=== PATIENT | female | born 1965 | race Caucasian/White ===

== ENCOUNTER → 2017-11-12 | Outpatient (CLI) | payer OTHER | LOC: M.RAD 12:46 | DX: M25.521 Pain in right elbow (principal) ==

== ENCOUNTER → 2018-03-02 | Outpatient (CLI) | payer OTHER | LOC: M.RAD 09:52 | DX: Z12.31 Encounter for screening mammogram for malignant neoplasm of breast (principal) ==

== ENCOUNTER → 2018-03-04 | Outpatient (CLI) | payer OTHER | LOC: M.ULTRA 09:40 | DX: N60.01 Solitary cyst of right breast (principal); N60.02 Solitary cyst of left breast ==

== ENCOUNTER 2019-08-20 09:30 | Inpatient (IN) | payer BC ==
[~2019-08-20] VITALS: Ht 157.5 cm; Wt 94.4 kg
[2019-08-20 09:33] VITALS: BP 139/70
[2019-08-20 09:51] LABS: ABSOLUTE BASOPHILS 0.1 thou/uL (0.0-0.2); ABSOLUTE EOSINOPHILS 0.3 thou/uL (0.0-0.7); ABSOLUTE LYMPHOCYTES 2.3 thou/uL (0.8-5.3); ABSOLUTE MONOCYTES 0.4 thou/uL (0.0-1.2); ABSOLUTE NEUTROPHILS 5.3 thou/uL (1.6-8.1); BASOPHILS 0.7 %; EOSINOPHILS 3.8 %; HEMATOCRIT 33.1 % (37.0-47.0); HEMOGLOBIN 11.4 gm/dL (12.0-15.0); LYMPHOCYTES 28.2 %; MCH 30.8 pg (26.0-34.0); MCHC 34.4 g/dL (28.0-37.0); MCV 89.4 fL (80.0-100.0); MONOCYTES 4.4 %; NUCLEATED RBCS 0 /100WBC; PLATELET COUNT* 200 thou/uL (150-400); POLYS 62.9 %; WBC 8.3 thou/uL (4.0-11.0)
[2019-08-20 10:20] LABS: CALCIUM 8.7 mg/dL (8.5-10.1); CREATININE 0.9 mg/dL (0.6-1.3); POTASSIUM 3.6 mmol/L (3.5-5.1)
[2019-08-20 10:24] LABS: ALBUMIN 3.4 g/dL (3.4-5.0); MAGNESIUM 1.8 mg/dL (1.8-2.4); TOTAL BILIRUBIN 0.6 mg/dL (<0.1-1.0); TOTAL PROTEIN 7.2 g/dL (6.4-8.2)
--- NOTE | 2019-08-20 11:50 | NUR ---
PT HAD A FEW SECONDS OF HEART RATE OF 41. PROVIDER NOTIFIED
[2019-08-20 13:13] VITALS: BP 153/70
[2019-08-20 13:30] VITALS: BP 174/78
[2019-08-20 16:21] LABS: CHOLESTEROL 205 mg/dL (<200); HDL CHOLESTEROL 33 mg/dL (>40); LDL CHOLESTEROL 139 mg/dL (<100); TC:HDL 6.2 Ratio (Not establshd); TRIGLYCERIDE 168 mg/dL (<150); VLDL 34 mg/dL (<40)
[2019-08-20 16:22] LABS: SERUM ASSESSMENT Clear
[2019-08-20 16:23] VITALS: BP 157/45
--- NOTE | 2019-08-20 19:39 | NUR ---
PT VSS, NSR ON TELE. PT TRANSFERRED AROUND 1330 FROM ER. A&OX4. STRESS TEST COULD NOT BE PERFORMED TODAY. CARDIAC CONSULT INPUT FOR 08/21/19. PT NPO AT MIDNIGHT. PT UP AD GEMINI. HOURLY ROUNDING PERFORMED, POSSESSIONS AND CALL LIGHT WITHIN REACH. PATIENT IS ALSO VEGETARIAN.
[2019-08-20 19:50] VITALS: BP 169/75
[2019-08-20 23:50] VITALS: BP 124/61
[2019-08-21 04:30] VITALS: BP 165/70
--- NOTE | 2019-08-21 05:17 | NUR ---
PT ALERT AND ORIENTED. BP SEEMS TO BE A LIL HIGH. PT NOT ON BP MEDS. WILL MENTION TO DAYSHIFT NURSE. NPO AFTER MIDNIGHT. PT SLEPT MOST OF SHIFT. UP AD GEMINI. IV SL. CALL LIGHT WITHIN REACH. HOURLY ROUNDINGS MADE. WILL CONTINUE TO MONITOR.
[2019-08-21 08:35] VITALS: BP 173/65
--- NOTE | 2019-08-21 08:36 | NUR ---
VSS, ASSUMED CARE IN THE AM, ASSESSMENT PERFORMED AND CHARTED, FALL PRECAUTIONS IN PLACE AND CALL LIGHT IN REACH, PT IS A&O4 AND UP AD GEMINI AND TRACING SR ON THE MONITOR, PT STATES CHEST PRESSURE, PT GOAL IS TO LOWER BP'S AND NO CHEST PAIN. WILL ROLLOW WITH PLAN OF CARE,
[2019-08-21 09:12] VITALS: BP 173/65
--- NOTE | 2019-08-21 09:54 | CON ---
[address] [address] CONSULTATION Name: MICHEL CASTRO Room: [address] IN M.R.#: [id number] Admission: 08/20/19 Attend Phys: Samuel Man Discharge: Date of : 67 Report #: [id number] THIS REPORT FOR: //name// CC: Roberta Cheek DO Nathaniel Galvan DATE OF SERVICE: 08/21/2019 CARDIOLOGY CONSULTATION HISTORY OF PRESENT ILLNESS: The patient is a 54-year-old female who I was asked to see in the hospital after she complained of chest pain. The patient has no previous history of heart disease. She stays fairly active. She notes for the past 2 days, she has had a squeeze in her chest. It has been persistent for 2 days. It seems to be worse if she presses on her chest. She denied any trauma or rash on her chest. The pain is not related to food, activity or bending over. She denied associated shortness of breath, diaphoresis, nausea. Because of discomfort, she finally came to the Emergency Room yesterday and was admitted. Today, the pain is still there. She has had no fever, cough, bleeding. She denies exertional dyspnea, palpitations or syncope. PAST MEDICAL HISTORY: She is . She went through menopause. She has no history of surgery or procedures. No history of hypertension, diabetes, hyperlipidemia. MEDICATIONS: Her only medication include allergy pill, red yeast rice, vitamin D. ALLERGIES: She has no known drug allergies. FAMILY HISTORY: Father had a heart attack. SOCIAL HISTORY: She is . She and her live here in [place]. She works in a factory. She is originally from [facility]. No smoking or alcohol abuse. REVIEW OF SYSTEMS: She has had no history of stroke, asthma, peptic ulcer disease, liver disease, kidney disease, cancer, chronic skin condition. PHYSICAL EXAMINATION: GENERAL: Revealed a middle-aged female, appeared in no distress. VITAL SIGNS: Her blood pressure 150/70, pulse 60. She is afebrile. HEENT: She was anicteric. Conjunctivae are pink. Mucous membranes moist. NECK: Veins nondistended. [place] [address] CONSULTATION Name: MICHEL CASTRO Room: [address]#: [id number] Admission: 08/20/19 Attend Phys: Samuel Man Discharge: Date of : 67 Report #: [id number] CHEST: Clear to auscultation. CARDIOVASCULAR: Regular rate without murmur or rub. ABDOMEN: Soft. EXTREMITIES: Had no edema. Posterior tibial pulse 2+ bilaterally. SKIN: Warm and dry. NEUROLOGIC: Nonfocal. RADIOLOGICAL DATA: Her ECG on admission showed sinus rhythm. There is no significant ST or T-wave change noted. She had chest x-ray on admission yesterday that showed normal heart size and clear lung colbert. Carotid Doppler study done showed a plaque with narrowing of approximately 70%, left carotid to be less than 40%. LABORATORY DATA: Sodium 141, creatinine 0.9. Liver function studies were normal. Troponins all less than 0.06. Cholesterol 205, triglyceride 168, HDL 33, LDL 139. TSH 3.1. White blood cell count 8.3, hematocrit 33. IMPRESSION AND RECOMMENDATIONS: 1. Chest pain. Atypical for angina. No evidence of acute coronary syndrome. At this time, I think it is reasonable to discharge the patient and plan on performing an outpatient stress echocardiogram. 2. Hyperlipidemia. The patient is on red yeast rice. 3. Carotid stenosis. Recommend referral to vascular surgeon. 4. Hypertension. I would start the patient on an ARB. 5. SEASONAL ALLERGIES. <ELECTRONICALLY SIGNED> By: Beau Wells MD, [facility] 08/21/19 0954 0827 [id number] Wells MD, FACC /nt
[2019-08-21] MEDS ORDERED: CARVEDILOL12.5 MG PO (10:32)
[2019-08-21] MEDS ORDERED: LIPITOR40 MG PO (10:33)
[2019-08-21] MEDS ORDERED: COZAAR 25 MG TA25 M1 PO (10:34)
[2019-08-21] MEDS ORDERED: ASPIR 8181 M1 PO (10:35)
[2019-08-21] MEDS ORDERED: TYLENOL325 M1 PO (10:37)
[2019-08-21] MEDS ORDERED: PEPCID20 MG PO (10:37)
[2019-08-21] MEDS ORDERED: IBUPROFEN200 M1 PO (10:38)
[2019-08-21 10:39] VITALS: BP 173/65
--- NOTE | 2019-08-21 11:17 | NUR ---
VSS, PT WAS GIVEN DISCHARGE ORDERS, FILLED OUT D/C ORDERS, PROVITED SCRIPTS, AND TOOK OUT IV AND TELE MONITOR, PT DENIES ANY QUESTIONS AT TIME OF D/C PT WAS WALKED OUT TO CAR BY STAFF.
--- NOTE | 2019-08-24 10:38 | EKG ---
[place] [address] ELECTROCARDIOGRAM REPORT Name: MICHEL CASTRO Room: [address] DIS IN M.R.#: [id number] Admission: 08/20/19 Attend Phys: Samuel Man Discharge: 08/21/19 Date of : 67 Report #: [id number] THIS REPORT FOR: //name// [facility] ED Test Date: 2019-08-20 Test Time: 09:34:00 Pat Name: MICHEL CASTRO Department: Room: [facility] Gender: F Pattern Developer: RANDAL : 1965 Requested By: Zeferino Alvarez Order Number: [id number] MD: Chemo Galindo Measurements Intervals [place] Rate: 86 P: 69 WA: 192 QRS: 41 QRSD: 98 T: 37 QT: 362 QTc: 433 Interpretive Statements Sinus rhythm Baseline wander in lead(s) II,III,aVF No previous ECG available for comparison Electronically Signed On 08-24-2019 10:37:45 SUPERVISOR CASE LOADING by Chemo Galindo [email or web address] <ELECTRONICALLY SIGNED> By: Chemo Galindo MD, [facility] 08/24/19 1037 3 Chemo Galindo MD, FAC /EPI
== END 2019-08-21 11:00 | disposition home or self-care (01) | DRG 310 ==
LOC: M.ERS 09:30 → M.TBA-ER 12:11 → M.2W 13:30
PROVIDERS: Emergency Medicine Emergency Medical Services; ADMIT Internal Medicine
DX: R00.1 Bradycardia, unspecified (principal); I65.29 Occlusion and stenosis of unspecified carotid artery; J30.2 Other seasonal allergic rhinitis; I10 Essential (primary) hypertension; I25.10 Atherosclerotic heart disease of native coronary artery without angina pectoris; M94.0 Chondrocostal junction syndrome [Tietze]; E78.5 Hyperlipidemia, unspecified; T14.8XXA Other injury of unspecified body region, initial encounter; X58.XXXA Exposure to other specified factors, initial encounter; Z82.49 Family history of ischemic heart disease and other diseases of the circulatory system; Y93.89 Activity, other specified; Y92.89 Other specified places as the place of occurrence of the external cause; Y99.8 Other external cause status; Z79.82 Long term (current) use of aspirin; Z79.899 Other long term (current) drug therapy; Z28.21 Immunization not carried out because of patient refusal

== ENCOUNTER 2020-09-08 00:28 | Emergency (ER) | payer BC ==
[~2020-09-08] VITALS: Ht 165.1 cm; Wt 90.7 kg
[~2020-09-08 00:28] MED LIST: ASPIR 8181 M1 PO; CARVEDILOL12.5 MG PO; COZAAR 25 MG TA25 M1 PO; IBUPROFEN200 M1 PO; LIPITOR40 MG PO; PEPCID20 MG PO; TYLENOL325 M1 PO
[2020-09-08] MEDS ORDERED: RED YEAST RICE600 MG PO (00:41)
[2020-09-08] MEDS ORDERED: VITAMIN D310 MC3 PO (00:41)
[2020-09-08 01:07] LABS: ABSOLUTE EOSINOPHILS 0.1 thou/uL (0.0-0.7); ABSOLUTE LYMPHOCYTES 2.4 thou/uL (0.8-5.3); ABSOLUTE MONOCYTES 0.6 thou/uL (0.0-1.2); ABSOLUTE NEUTROPHILS 5.6 thou/uL (1.6-8.1); BASOPHILS 0.3 %; EOSINOPHILS 1.7 %; HEMATOCRIT 31.6 % (37.0-47.0); HEMOGLOBIN 10.4 gm/dL (12.0-15.0); LYMPHOCYTES 27.9 %; MCV 93.9 fL (80.0-100.0); MONOCYTES 6.7 %; MPV 10.9 fl. (7.2-11.1); NUCLEATED RBCS 0 /100WBC; PLATELET COUNT* 145 thou/uL (150-400); POLYS 63.4 %; RBC 3.37 mil/uL (4.20-5.00); RDW-CV 13.9 % (10.5-14.5); WBC 8.8 thou/uL (4.0-11.0)
[2020-09-08 01:16] LABS: PROTIME 10.9 Seconds (9.20-11.50)
[2020-09-08 01:20] LABS: CALCIUM 8.9 mg/dL (8.5-10.1); CREATININE 0.7 mg/dL (0.6-1.3); POTASSIUM 4.1 mmol/L (3.5-5.1)
[2020-09-08 01:27] LABS: URINE BILIRUBIN NEGATIVE (Negative); URINE BLOOD NEGATIVE (Negative); URINE CLARITY CLEAR; URINE COLOR YELLOW; URINE GLUCOSE-RANDOM NEGATIVE (Negative); URINE KETONES NEGATIVE (Negative); URINE LEUKOCYTES-REFLEX NEGATIVE (Negative); URINE NITRITE-REFLEX NEGATIVE (Negative); URINE PROTEIN NEGATIVE (Negative); URINE SPECIFIC GRAVITY <= 1.005 (1.005-1.030); URINE UROBILINOGEN 0.2 E.U./dl (0.2-1.0)
[2020-09-08 01:30] LABS: ALBUMIN 3.6 g/dL (3.4-5.0); MAGNESIUM 1.9 mg/dL (1.8-2.4); TOTAL BILIRUBIN 0.8 mg/dL (<0.1-1.0); TOTAL PROTEIN 7.2 g/dL (6.4-8.2)
[2020-09-08 04:06] VITALS: BP 162/66
--- NOTE | 2020-09-08 12:51 | EKG ---
[place] [address] ELECTROCARDIOGRAM REPORT Name: MICHEL CASTRO Room: [facility]#: [id number] Admission: 09/08/20 Attend Phys: Discharge: 09/08/20 Date of : 67 Date of Service: 09/08/20 0034 Report #: [id number] THIS REPORT FOR: //name// [facility] ED Test Date: 2020-09-08 Test Time: 00:34:54 Pat Name: MICHEL CASTRO Department: Room: Gender: F Manager Client: : 1965 Requested By: Marcia Barros Order Number: [id number] MD: Dontrell Scott Measurements Intervals [place] Rate: 73 P: 63 ND: 197 QRS: 33 QRSD: 89 T: 40 QT: 378 QTc: 417 Interpretive Statements Sinus rhythm Low voltage, precordial leads Baseline wander in lead(s) V1 Compared to ECG 08/20/2019 09:34:00 Low QRS voltage now present Electronically Signed On 09-08-2020 12:51:36 SENIOR BUSINESS ARCHITECT by Dontrell Scott [email or web address] <ELECTRONICALLY SIGNED> By: Dontrell Scott MD, [facility] 09/08/20 1251 0034 0034 Dontrell Scott MD, [facility] /EPI
== END 2020-09-08 04:09 | disposition home or self-care (01) ==
LOC: M.ERS 00:28
PROVIDERS: Emergency Medicine
DX: R07.89 Other chest pain (principal)

== ENCOUNTER → 2020-11-09 | Outpatient (CLI) | payer BC ==
[~2020-11-09] MED LIST changes: +RED YEAST RICE600 MG PO; +VITAMIN D310 MC3 PO
== END ==
LOC: M.LAB 09:14
PROVIDERS: ATTEND Internal Medicine Gastroenterology
DX: Z01.812 Encounter for preprocedural laboratory examination (principal); Z20.822 Contact with and (suspected) exposure to COVID-19; R10.84 Generalized abdominal pain; K21.9 Gastro-esophageal reflux disease without esophagitis

== ENCOUNTER → 2020-11-22 | Outpatient (CLI) | payer BC | LOC: M.RAD 08:37 | PROVIDERS: ATTEND Family Medicine | DX: N63.11 Unspecified lump in the right breast, upper outer quadrant (principal); N63.12 Unspecified lump in the right breast, upper inner quadrant; N63.21 Unspecified lump in the left breast, upper outer quadrant ==

== ENCOUNTER → 2021-01-31 | Outpatient (CLI) | payer BC ==
[~2021-01-31] VITALS: Ht 165.1 cm; Wt 88.5 kg
[2021-01-31 09:20] VITALS: BP 125/59
[2021-01-31 10:28] LABS: CREATININE 0.7 mg/dL (0.6-1.3)
== END ==
LOC: M.CT 08:27
PROVIDERS: Radiology Diagnostic Radiology; ATTEND Internal Medicine
DX: R07.9 Chest pain, unspecified (principal)